=== PATIENT | female | born 1965 | race Caucasian/White ===

== ENCOUNTER 2020-05-06 15:12 | Outpatient (CLI) | payer OTHER, SELFPAY ==
--- NOTE | ~2020-05-06 | CT_ITS ---
EXAMINATION: CT lung screening DATE: 05/06/2020 15:54 INDICATION: History of nicotine dependence. TECHNIQUE: Computed tomography (CT) of the chest was performed without intravenous contrast. The dose -length product was 116.22 mGy-cm. Automated exposure control and iterative reconstruction technique were employed. COMPARISON: CT dated 10/28/2018 FINDINGS: There is atherosclerosis of the aorta. No significant pleural or pericardial effusion. No t horacic lymphadenopathy. There are multiple new small pulmonary nodules of the upper lobes all measur ing 3 mm or less. There is a 4 mm right middle lobe nodule. Mild emphysema. Mild thoracic spondylosis . There is a coronary artery stent. IMPRESSION: 1. Lung-RADS category 3: Probably benign. Further evaluation is recommended with noncontrast low-dose chest CT in 6 months. Reviewed, dictated and finalized at location A. IBILITY WORKER IMPRESSION: 1. Lung-RADS category 3: Probably benign. Further evaluation is recommended wit h noncontrast low-dose chest CT in 6 months.
== END 2020-05-06 15:13 | disposition home or self-care (01) ==
PROVIDERS: PCP Emergency Medicine; Visit Provider Emergency Medicine
DX: Z12.2 Encounter for screening for malignant neoplasm of respiratory organs (principal); Z87.891 Personal history of nicotine dependence
CPT/HCPCS: G0297

== ENCOUNTER 2020-12-29 13:50 | Outpatient (CLI) | payer OTHER, SELFPAY ==
--- NOTE | ~2020-12-29 | CT_ITS ---
EXAMINATION: CT diagnostic chest wo con DATE: 12/29/2020 14:10 INDICATION: Six-month follow-up for probably benign findings on low-dose lung cancer screening CT TECHNIQUE: Computed tomography (CT) of the chest was performed without intravenous contrast. The dose -length product (DLP) was 98.24 mGy-cm. Automated exposure control and iterative reconstruction techn ique were employed. COMPARISON: None FINDINGS: There is mild emphysema. There are multiple nodules scattered throughout all lung zones, ma ny of which demonstrate increase in size. For instance a 6 mm nodule of the right lower lobe previous ly measured 3 mm. There is no pleural effusion or pneumothorax. No pathologically enlarged thoracic l ymph nodes are identified. The heart size is normal. Calcified coronary artery atherosclerosis is not ed. The gallbladder is surgically absent. IMPRESSION: 1. Multiple pulmonary nodules throughout all lung zones with increase in size. Findings may be infect ious or inflammatory or less likely reflect metastatic disease. Follow-up CT in three months is recom mended. Reviewed, dictated and finalized at location B. IMPRESSION: 1. Multiple pulmonary nodules throughout all lung zones with increase in size. Findings may be infectious or inflammatory or less likely reflect metastatic di sease. Follow-up CT in three months is recommended.
== END 2020-12-29 13:51 | disposition home or self-care (01) ==
PROVIDERS: PCP Emergency Medicine; Visit Provider Emergency Medicine
DX: R91.8 Other nonspecific abnormal finding of lung field (principal)
CPT/HCPCS: 71250

== ENCOUNTER 2021-02-10 17:30 | Emergency (ER) | payer OTHER, SELFPAY ==
[2021-02-10 17:36] VITALS: BP 203/93; PULSE 82; RESP 18; TEMP 36.9; O2SAT 100
--- NOTE | 2021-02-10 17:36 | ED.EAR ---
HPI - Ear Problem General Chief complaint: Ear Stated complaint: Ear complaint Time Seen by Provider: 02/10/21 17:36 Source: patient and RN notes reviewed History of Present Illness HPI Narrative: Patient is a 55-year-old female who presents the urgent care with complaints of possible foreign body to the left ear. Patient states that she was trimming bushes on Saturday and felt something may be go into the left ear canal. Patient states it has been a little itchy and she feels something moving . Patient denies of any drainage, fever, nausea, vomiting. Patient has put peroxide in the ear. No other acute complaints. No acute distress noted. Patient aware of the plan of care. Some parts of this dictation were generated by voice recognition software and may contain typographical and/or grammatical inaccuracies. Related Data Home Medications Medication Instructions Recorded Confirmed atorvastatin 80 mg PO DAILY 02/10/21 02/10/21 bupropion HCl 100 mg PO DAILY 02/10/21 02/10/21 carvedilol 12.5 mg PO DAILY 02/10/21 02/10/21 carvedilol 25 mg PO DAILY 02/10/21 02/10/21 clopidogrel 75 mg PO DAILY 02/10/21 02/10/21 hydrocodone-acetaminophen 7.5 tablet PO TID PRN 02/10/21 02/10/21 icosapent ethyl [Vascepa] 1 g PO BID 02/10/21 02/10/21 isosorbide mononitrate 60 mg PO DAILY 02/10/21 02/10/21 Allergies Allergy/AdvReac Type Severity Reaction Status Date / Time Penicillins Allergy Unknown Verified 02/10/21 17:58 Review of Systems Review of Systems: CONSTITUTIONAL: Denies fever, chills, or sweats. EYES: Denies visual changes, redness, or discharge. ENT: Denies rhinorrhea, congestion, sore throat. reports of possible foreign body to left ear CARDIOVASCULAR: Denies chest pain, palpitations, or edema. RESPIRATORY: Denies cough or dyspnea. GASTROINTESTINAL: Denies abdominal pain, nausea, vomiting, or diarrhea. GENITOURINARY: Denies dysuria or hematuria. SKIN: Denies rash or itching. MUSCULOSKELETAL: Denies back pain, joint pain, or myalgia. NEUROLOGIC: Denies headache, numbness, or weakness. All other systems reviewed are negative, except as documented in HPI. PMFSH Comments At the time of my signature, I reviewed and agree with the nursing past medical, surgical, social, and family history. There is no relevant family history pertinent to the patient complaint. Exam Narrative: GENERAL: This is a well-nourished, well-developed patient, in no apparent distress. HEAD: normocephalic, atraumatic. EYES: PERRL. Sclera clear/white. Vision is grossly intact. EARS: External ears normal, left auditory canals clear and without drainage, possible white foreign body to the left ear canal, unable to visualize left TM, right TM normal without perforation. Hearing grossly intact. NOSE: External nose normal with no obvious nasal discharge, nares without redness, no rhinorrhea. THROAT: Mucous membranes moist NECK: Neck supple RESPIRATORY: Clear to auscultation. Breath sounds equal bilaterally. No wheezes, rales, or rhonchi. SKIN: warm, intact with no suspicious lesions or rash, good texture and turgor. NEURO: awake, alert, and oriented to person, place and time. There were no obvious focal neurologic abnormalities. EXTREMITIES: No clubbing, cyanosis, or edema. Course Vital Signs Vital signs: Vital Signs Temperature 98.4 F 02/10/21 17:36 Pulse Rate 82 02/10/21 17:36 Respiratory Rate 18 02/10/21 17:36 Blood Pressure 203/93 H 02/10/21 17:36 Pulse Oximetry 100 02/10/21 17:36 Temperature 98.4 F 02/10/21 17:44 Pulse Rate 82 02/10/21 17:44 Respiratory Rate 18 02/10/21 17:44 Blood Pressure 203/93 H 02/10/21 17:44 Pulse Oximetry 100 02/10/21 17:44 Reviewed-patient is informed that they may have pre-hypertension or hypertension based on a blood pressure reading in the department. I recommend the patient call the primary care provider listed on their discharge instructions or a physician of their choice this week to arr
[2021-02-10 17:44] VITALS: BP 203/93; PULSE 82; RESP 18; TEMP 36.9; O2SAT 100
[2021-02-10 18:02] VITALS: BP 167/78
== END 2021-02-10 18:02 | disposition home or self-care (01) ==
PROVIDERS: Emergency Provider Nurse Practitioner Family; PCP Emergency Medicine
DX: H61.22 Impacted cerumen, left ear (principal); E78.00 Pure hypercholesterolemia, unspecified; I10 Essential (primary) hypertension
CPT/HCPCS: 69209; 99213; G0463

== ENCOUNTER 2021-03-28 15:21 | Outpatient (CLI) | payer OTHER, SELFPAY ==
--- NOTE | ~2021-03-28 | CT_ITS ---
EXAMINATION: CT diagnostic chest wo con DATE: 03/28/2021 15:52 INDICATION: Lung nodule TECHNIQUE: Computed tomography (CT) of the chest was performed without intravenous contrast. The dose -length product (DLP) was 106.42 mGy-cm. Automated exposure control and iterative reconstruction tech [employer] were employed. COMPARISON: 12/29/2020 FINDINGS: Multiple bilateral pulmonary nodules persist but demonstrate interval decrease in size. A 5 mm triangular nodule in association with the major fissure in the right lower lobe likely represents a fissural lymph node.. There is mild emphysema. The lungs are free of acute opacities. There is no pleural effusion or pneumothorax. No pathologically enlarged thoracic lymph nodes are identified. The heart size is normal. Calcified coronary artery atherosclerosis is noted. There is mild thoracic spo ndylosis. IMPRESSION: 1. Multiple pulmonary nodules with decrease in size, consistent with resolving infection/inflammation . Annual lung cancer screening CT is recommended. Reviewed, dictated and finalized at location B. I SITE LEASING CONSULTANT IMPRESSION: 1. Multiple pulmonary nodules with decrease in size, consistent with resolving infection/inflammation. Annual lung cancer screening CT is recommended.
== END 2021-03-28 15:22 | disposition home or self-care (01) ==
LOC: ANHIMG 15:25
PROVIDERS: PCP Emergency Medicine; Visit Provider Emergency Medicine
DX: R91.8 Other nonspecific abnormal finding of lung field (principal)
CPT/HCPCS: 71250

== ENCOUNTER 2021-05-01 08:19 | Outpatient (CLI) | payer OTHER, SELFPAY ==
--- NOTE | 2021-05-01 16:04 | WPDPFTINT ---
PFT Procedure Performed PFT Procedure Performed Spirometry with Pre/Post Bronchodilator Plethysmography (Lung Vol) Diffusing Cap (DLCO) Flow Vol Loop PFT Interpretation This is a pulmonary function test with pre and post-bronchodilator spirometry, plethysmography and diffusing capacity. The test was performed and results interpreted in accordance with the 2019 and 2005 ATS/ERS Task Force guidelines respectively using the Global Lung Function Initiative-2012 reference equations. Patient demonstrated good effort and cooperation. Reproducibility criteria were met. The quality of the pre bronchodilator spirometry maneuver was Grade A and post bronchodilator spirometry maneuver was Grade A. Findings: Spirometry: there is decreased maximal expiratory airflow at all lung volumes with concave expiratory flow tracing. The contour the inspiratory flow tracing is normal. The pre bronchodilator FVC is 2.63 L, 80% predicted. The pre bronchodilator FEV1 is 1.70 L, 65% predicted. The FEV1: FVC ratio 65%. The post bronchodilator FVC is 2.69 L, representing a 3% increase. The post bronchodilator FEV1 is 1.77 L, representing a 4% increase. Plethysmography: The total lung capacity is 4.76 L, 94% predicted. The functional residual capacity is 2.85 L, 100% predicted. The residual volume is 2.09 L, 108% predicted. Diffusing capacity: The absolute diffusion capacity is 12.1, 55% predicted. The diffusing capacity corrected for alveolar volume is 3.22, 72% predicted Impression: There is a moderate obstructive abnormality without significant improvement after inhaling a single dose of albuterol. The lung volumes are normal. The absolute diffusing capacity is moderately decreased and normalizes when corrected for alveolar volume. There are no prior studies for comparison
== END 2021-05-01 08:20 | disposition home or self-care (01) ==
PROVIDERS: PCP Emergency Medicine; Visit Provider Internal Medicine Pulmonary Disease
DX: F17.200 Nicotine dependence, unspecified, uncomplicated (principal); R94.2 Abnormal results of pulmonary function studies
CPT/HCPCS: 94060; 94726; 94729

== ENCOUNTER 2022-05-24 14:56 | Outpatient (CLI) | payer OTHER, SELFPAY ==
--- NOTE | ~2022-05-24 | CT_ITS ---
EXAMINATION: CT lung screening DATE: 05/24/2022 15:27 INDICATION: Pulmonary nodules. Lung cancer screening. TECHNIQUE: Computed tomography (CT) of the chest was performed without intravenous contrast. The dose -length product was 106.87 mGy-cm. Automated exposure control and iterative reconstruction technique were employed. COMPARISON: Comparison to multiple prior studies sequentially, with oldest reviewed study dated 04/19. FINDINGS: No thoracic lymphadenopathy. Heart size normal. Trace pericardial effusion. No significant pleural effusion. There are cholecystectomy clips. No mediastinal lymphadenopathy. There is mild emph ysema. Stable 4 mm triangular nodule major fissure right lower lobe, likely benign. No endobronchial lesions. There are stable small 2-3 mm nodules, likely benign. No new pulmonary nodules or masses. A few nodules in the right mid and lower lung no pneumothorax. Mild thoracic spondylosis. No focal lyti c or blastic lesions. Are smaller than on most recent CT dated 03/28/2021, consistent with resolving infectious/inflammatory process. IMPRESSION: 1. Lung-RADS category 2: Benign appearance or behavior. Continue annual screening with noncontrast lo w-dose chest CT in 12 months. Reviewed, dictated and finalized at location A. RITY LEAD IMPRESSION: 1. Lung-RADS category 2: Benign appearance or behavior. Continue annual screeni ng with noncontrast low-dose chest CT in 12 months.
== END 2022-05-24 14:57 | disposition home or self-care (01) ==
LOC: ANHIMG 14:58
PROVIDERS: PCP Emergency Medicine; Visit Provider Emergency Medicine
DX: Z12.2 Encounter for screening for malignant neoplasm of respiratory organs (principal); R91.1 Solitary pulmonary nodule; F17.210 Nicotine dependence, cigarettes, uncomplicated
CPT/HCPCS: 71271

== ENCOUNTER 2023-08-19 15:45 | Outpatient (CLI) | payer OTHER, SELFPAY ==
--- NOTE | ~2023-08-19 | CT_ITS ---
CT Scan of the Chest without Contrast: Clinical Indication: Lung cancer screening, nicotine dependence Technique: Contiguous sections were acquired throughout the chest without intravenous contrast. Dose reduction technique was used on this scan by utilizing automated exposure control and iterative recon struction technique. The dose-length product (DLP) was 95.08 mGy-cm. Findings: There is no evidence of any significant mediastinal, hilar or axillary lymphadenopathy. Coronary lino ry calcifications are present. There is no evidence of pleural or pericardial effusion. The lungs are clear. No pulmonary nodules or infiltrates are noted. Images through the upper abdomen reveal no abnormalities. Impression: Lung RADS 1: Negative. 12 month follow-up screening CT advised. Reviewed, dictated and finalized at location . Impression: Lung RADS 1: Negative. 12 month follow-up screening CT advised.
== END 2023-08-19 15:46 | disposition home or self-care (01) ==
LOC: ANHIMG 15:46
PROVIDERS: PCP Emergency Medicine; Visit Provider Emergency Medicine
DX: Z12.2 Encounter for screening for malignant neoplasm of respiratory organs (principal); Z87.891 Personal history of nicotine dependence
CPT/HCPCS: 71271

== ENCOUNTER 2024-11-09 14:30 | Outpatient (CLI) | payer OTHER, SELFPAY ==
--- NOTE | ~2024-11-09 | CT_ITS ---
CT Scan of the Chest without Contrast: Clinical Indication: Lung cancer screening, nicotine dependence Technique: Contiguous sections were acquired throughout the chest without intravenous contrast. Dose reduction technique was used on this scan by utilizing automated exposure control and iterative recon struction technique. The dose-length product (DLP) was 59.72 mGy-cm. COMPARISON: 08/19/2023 Findings: There is no evidence of any significant mediastinal, hilar or axillary lymphadenopathy. Extensive cor onary artery calcifications are present. Small pericardial effusion. There is no pleural effusion. There are a few loosely grouped 3 mm left lower lobe pulmonary nodules. Images through the upper abdomen reveal no abnormalities. Impression: Lung RADS 2: Benign appearance. 12 month follow-up screening CT advised. Reviewed, dictated and finalized at location . Impression: Lung RADS 2: Benign appearance. 12 month follow-up screening CT advised.
== END 2024-11-09 14:31 | disposition home or self-care (01) ==
PROVIDERS: PCP Emergency Medicine; Visit Provider Emergency Medicine
DX: Z12.2 Encounter for screening for malignant neoplasm of respiratory organs (principal); Z87.891 Personal history of nicotine dependence
CPT/HCPCS: 71271

== ENCOUNTER 2024-11-11 13:07 | Outpatient (CLI) | payer OTHER, SELFPAY ==
--- NOTE | ~2024-11-11 | DEXA_ITS ---
Bone Density Report Name: JUAN KABA Age: 59 Sex: Female Ethnicity: White Date of : 1965 Indication: postmenopausal; screening for osteoporosis; height loss; prior fracture; Referring Provider: MICAH SHAVER Study: Bone densitometry was performed. Exam Date: November 11, 2024 Accession number: [id number] Bone Density: Region BMD T-score Z-score Classification AP Spine(L1-L4) 0.950 -0.9 0.6 Normal Femoral Neck (Left) 0.912 0.6 1.9 Normal Total Hip (Left) 1.023 0.7 1.7 Normal Femoral Neck (Right) 0.941 0.8 2.2 Normal Total Hip (Right) 1.030 0.7 1.7 Normal Total Hip Mean 1.027 0.7 1.7 Normal World Health Organization criteria for BMD impression classify patients as: Normal (T-score at or above -1.0), Osteopenia (T-score between -1.0 and -2.5), or Osteoporosis (T-score at or below -2.5). 10-year Fracture Risk: FRAX not reported because: All T-scores for Spine Total, Hip Total, Femoral Neck at or above -1.0 Prior hip or vertebral fracture Clinical Information Provided by Patient: Have had a previous hip or vertebral fracture Has had a low trauma fracture Smokes Has used the following medications: Vitamin D Patient maximum height was 64 Menopause Age: 39 No regular weight bearing exercise Drinks caffeinated beverages Onset of menses at age 12 Number of children 4 Impression: The patient has normal bone mass. The patient has risk factors, including: smoking, previous fracture. Discussion: INCREASED RISK OF FRACTURE DUE TO HISTORY OF FRACTURE. The patient's previous fracture puts the patient at high risk of a future fracture. In untreated patients, the risk of osteoporotic fracture increases approximately two-fold for each 1.0 SD decrease in T-score. Low bone density is not the only risk factor for fracture; also consider factors such as patient's age, frailty or poor health, risk of falling, risk of injury, previous osteoporotic fracture, family history of osteoporosis, cigarette smoking, low body weight, etc. Not everyone with a low trauma fracture has osteoporosis; osteomalacia and other metabolic bone disorders should also be considered. Patients who have osteoporosis should be evaluated for specific diseases and conditions (secondary causes) that may cause or contribute to bone loss and fracture risk. National Osteoporosis Foundation (NOF) recommends pharmacologic intervention for patients with a prior hip or vertebral fracture regardless of BMD T-score. The patient should follow a healthful lifestyle (good nutrition with adequate calcium and vitamin D, and appropriate weight-bearing exercise). Follow-Up: Consider a repeat BMD and Vertebral Fracture Assessment (VFA) exam in 2 years or sooner if medically necessary, to reassess this patient's status. Reported by: ALCIDES on 11/11/2024 1:45:00 PM. Reviewed, dictated and finalized at location A.
== END 2024-11-11 13:08 | disposition home or self-care (01) ==
LOC: ANHIMG 13:08
PROVIDERS: PCP Emergency Medicine; Visit Provider Emergency Medicine
DX: Z78.0 Asymptomatic menopausal state (principal)
CPT/HCPCS: 77080